=== PATIENT | female | born 1985 | race Hispanic/Latino ===

== ENCOUNTER 2017-03-13 08:55 | Day surgery (SDC) | payer BC, OTHER ==
[2017-03-13 09:05] VITALS: BMI 24.7
[2017-03-13 09:30] LABS: HEMATOCRIT 36.8 % (34.0-47.0); MEAN CORPUSCULAR HEMOGLOBIN 31.8 pg (27.0-31.0); MEAN CORPUSCULAR HGB CONC 33.5 g/dL (33.0-37.0); RED CELL DISTRIBUTION WIDTH 12.6 % (11.5-14.5); WHITE BLOOD COUNT 5.9 K/uL (4.8-10.8)
[2017-03-13] MEDS ORDERED: Propofol 10 mg/ml Inj (20 ML) ONE (12:41)
[2017-03-13] MEDS ORDERED: Midazolam 2 MG/2 ML VIAL ONE (12:41)
[2017-03-13] MEDS ORDERED: Lidocaine 4% (Laryng-O-Jet) Kit MM ONE (12:41)
[2017-03-13] MEDS ORDERED: Rocuronium 10 mg/ml (5 ml) ONE (12:41)
[2017-03-13] MEDS ORDERED: Succinylcholine 200 mg/10 ml Inj IV ONE (12:41)
[2017-03-13] MEDS ORDERED: Lactated Ringer's 1,000 ML IV ONE ×2 (13:20→14:20)
[2017-03-13] MEDS: Bupivacaine 0.5% Inj(30mL) ONE ×2 (13:41→14:50)
[2017-03-13] MEDS ORDERED: Neostigmine Methylsulfate 2 MG/2 ML ML IV ONE (14:39)
[2017-03-13] MEDS ORDERED: Lactated Ringer's 1,000 ML IV SCH (15:15)
[2017-03-13] MEDS: HYDROmorphone 0.5 mg/0.5 ml ISec IVP PRN ×2 (15:30→15:45)
[2017-03-13] MEDS ORDERED: Oxycodone/Acetaminophen 5/325 mg Tab PO PRN (15:56)
[2017-03-13 18:18] VITALS: BP 119/73; PULSE 80; RESP 20; TEMP 98.6; O2SAT 98
--- NOTE | 2017-03-17 07:51 | PCM.OP ---
Operative Report - Operative Report Date of Surgery/Procedure: 03/13/17 Time of Surgery/Procedure: 08:00 Surgeon: Dr. Onel Wells Computing Machine Operator: Dr. Harry Kingsley Anesthesia/Sedation: general/Dr. 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 2- appendectomy. Brief History: This 31 year old woman was brought to the operating room by Dr. Harry Kingsley when he noted a lesion on the rectum with possible invovlement of the appendix considering her abdominal pain. Intraoperative general surgery consult was obtained. Description of the Procedure: The patinet had already been brought to the operating room by Dr. Kingsley and the robotic procedure was already initiated (separate dictation Dr. Kingsley). After taking control of the roboti console both areas in question werer examined. Using blunt and sharp dissection with the aid of elelctrocautery the will-rectal lesion was incised circumferentially and dissected from the rectal wall. With meticulous attention to hemostasis the lesion was excided en-bloc, removed and sent to pathology as a separate specimen. Our attention then turned to the appendix. Using the same technique the appendiceal mesnetery was incised and the appendiceal artery was identified and dessicated. The appendix was dissected to the base and using two 3-0 PDS enoloops the base was tied. Electrocautery was then used to transect the appendix. It was appropriately maerked and sent to pathology as s eparate specimen. Both operative areas were examined and hemostasis was deemed adequate. The operation was then turned over to Dr. Kingsley (separate dictation Dr. Kingsley). Estimated Blood Loss: 5 cc Complications: none Specimen: 6-yjax-zeoliu endometriosis. 2-appendix Discharge & Condition: stable
--- NOTE | 2017-04-17 19:28 | OP ---
PROCEDURE DATE: 03/13/2017 PREOPERATIVE DIAGNOSES: Pelvic pain, bladder pain, dysmenorrhea, dyspareunia, abdominal pain, rule out endometriosis. POSTOPERATIVE DIAGNOSES: Pelvic pain, bladder pain, dysmenorrhea, dyspareunia, abdominal pain, rule out endometriosis and pelvic endometriosis PROCEDURE: A cystoscopy with bilateral ureteral catheterization and injection of dye, hysteroscopy with endometrial biopsy, robotic da Salvador excision of endometriosis, bilateral ureterolysis, ovariolysis, and an appendectomy to be dictated separately by Dr. Onel Wells. SURGEON: Harry Kingsley MD SERVICE AIDE: Onel Wells MD from General Surgery. COMPLICATIONS: None. SPECIMENS SENT OUT: Endometrial biopsy, appendix, left ureteral endometriosis, anterior rectal endometriosis, right ureteral endometriosis, posterior cervical endometriosis, left periureteral endometriosis, right periureteral endometriosis. INDICATION FOR THE PROCEDURE: This patient is a 31-year-old female with a long history of dysmenorrhea and dyspareunia and pelvic pain, failing medical treatment, was seen in my surgery for consultation. She was counseled with regards to the risks and benefits of the surgical option and with the likelihood of the surgery to pose a solution to her problems. She understood this as well as the risks of the surgery. She also understood that ureteral stenting was recommended in the case of endometriosis, which was a suspicious disease in her case. She signed the consent and was taken to the OR. DESCRIPTION OF PROCEDURE: After adequate anesthesia was obtained, the patient was placed in dorsal lithotomy position. She was prepped and draped. The surgeons gowned and gloved. After a time-out, the procedure started. The attention was to vaginal area where a cystoscope was inserted into the bladder under the direct visualization. Both ureteral ostia were appeared to be in a normal anatomical position. The left ureter was then catheterized with an open ended catheter all the way to the distal ureter and 5 mL were injected inside the distal ureter. The catheter was then removed from the ureter and inserted into the contralateral ureter all the way to the distal ureter where another 5 mL of IC-Green were inserted into the distal ureter. At this point, a full cystoscopy was performed looking at the bladder revealing and analyzing, there was appeared to be no evidence of masses, tumors or bleeding sources. The instruments were removed and a 15-Liber[place] Herbert was placed into the bladder. Attention was in the vaginal area where the anterior lip of the cervix was grasped. The cervix was dilated and a hysteroscope was inserted into the uterine cavity. The uterine cavity appeared to be slightly erythematous, otherwise the size of the cavity appeared to be normal, therefore because of the erythema, an endometrial biopsy was taken and sent to pathology to rule out endometritis. At this point, a uterine manipulator was placed in the uterus and attention was on the abdomen where after regowning and regloving, an incision was made on the umbilicus and an open laparoscopy technique was done by incising the fascia and then entering the peritoneum in a blunt fashion. A trocar was inserted and abdomen insufflated. Under direct visualization, 3 additional trocars were inserted, right upper quadrant, left upper quadrant, left mid quadrant. At this point, the da Salvador Xi robot was docked and the procedure was commenced. Findings were as follow: There was evidence of endometriosis implants all over the pelvis and the peritoneal pelvis, left pelvic side wall, posterior cervix, posterior aspect of the uterus and right pelvic sidewall. Both fallopian tubes appeared to be uninvolved with endometriosis and the ovaries appeared to be only superficially involved with very small superficial implants. After excising those implants, attention was in the pelvic side wall. The procedure started on the left hand side where after identifying the ureter, the peritoneum was entered and lateralization of the uterus was performed by peeling the ureter off the medium leaf of the pelvic side wall all the way lateral from the pelvic brim, all the way down to the ovarian fossa. After dissection was performed and full ureterolysis, a swathe of peritoneum was excised containing endometriosis, which was sent to Pathology. Attention was then on the posterior aspect of the uterus, which was delineated utilizing a Senior Java Engineer and a full area of endometriosis containing peritoneum was dissected from the posterior aspect of the cervix all the way to the rectovaginal junction. Attention was then on the right hand side where after elevated the ovary, again the peritoneum was entered and the ureter identified utilizing fluorescent technology. The ureter was noticed to be vermiculating. It was progressively dissected again from the medial leaf of the peritoneum and dissected and lateralized all the way down to the ovarian fossa. Again, an area of peritoneum containing endometriosis was excised as a full sample and sent to pathology. After this was done, it was checked for hemostasis, it appeared to be excellent. Dr. Onel Wells from General Surgery was called in. He performed an appendectomy as well as excision of additional endometriosis in the perirectal area. He will dictate these separately. At this point, after it was checked for hemostasis, appeared to be excellent, the robot was undocked. The abdomen was desufflated. All the instruments were removed. The incisions were closed in layers utilizing 0 PDS for the fascia and 4-0 Monocryl for the skin. At the end of the procedure, all tapes and instruments counts were correct. The patient was taken to the recovery room in excellent condition. Harry Kingsley MD MTDD
== END 2017-03-13 18:45 | disposition home or self-care (01) ==
LOC: H.OPSURG 08:55
PROVIDERS: ATTEND Obstetrics & Gynecology Reproductive Endocrinology
DX: N80.0 Endometriosis of uterus (principal); N80.8 Other endometriosis; N80.5 Endometriosis of intestine; N83.00 Follicular cyst of ovary, unspecified side; N94.6 Dysmenorrhea, unspecified
CPT/HCPCS: 36415; 45171; 58558; 58662; 85027; 86850; 86900; 88305; C1729; J0330; J0690; J1170; J2175; J2250; J2405; J2704; J2710; J3010; J7030; J7040; J7120